=== PATIENT | female | born 1995 | race Caucasian/White ===

== ENCOUNTER 2020-10-16 15:18 | Emergency (ER) | payer OTHER, MEDICAID ==
[~2020-10-16] VITALS: Ht 157.5 cm; Wt 90.7 kg
[2020-10-16] MEDS ORDERED: IBUPROFEN 800800 M1 PO ×2 (15:56→16:04)
[2020-10-16] MEDS ORDERED: CEPHALEXIN500 MG PO ×2 (15:56→16:04)
[2020-10-16] MEDS ORDERED: NORCO5 PO ×2 (15:56→16:04)
[2020-10-16] MEDS ORDERED: BACTRIM DS TAB1 EACH PO ×2 (15:56→16:04)
[2020-10-16 16:17] VITALS: BP 124/58
== END 2020-10-16 16:18 | disposition home or self-care (01) ==
LOC: M.ERS 15:18
DX: L03.116 Cellulitis of left lower limb (principal); F15.10 Other stimulant abuse, uncomplicated; Z98.51 Tubal ligation status

== ENCOUNTER 2020-12-15 19:29 | Emergency (ER) | payer OTHER, MEDICAID ==
[~2020-12-15] VITALS: Ht 165.1 cm; Wt 102.1 kg
[~2020-12-15 19:29] MED LIST: BACTRIM DS TAB1 EACH PO; CEPHALEXIN500 MG PO; IBUPROFEN 800800 M1 PO; NORCO5 PO
[2020-12-15 20:47] LABS: ABSOLUTE LYMPHOCYTES 1.9 thou/uL (0.8-5.3); ABSOLUTE MONOCYTES 0.7 thou/uL (0.0-1.2); ABSOLUTE NEUTROPHILS 8.6 thou/uL (1.6-8.1); BASOPHILS 0.2 %; EOSINOPHILS 0.3 %; HEMATOCRIT 30.1 % (37.0-47.0); HEMOGLOBIN 9.9 gm/dL (12.0-15.0); LYMPHOCYTES 17.1 %; MCH 26.9 pg (26.0-34.0); MCV 81.4 fL (80.0-100.0); MONOCYTES 5.9 %; MPV 7.8 fl. (7.2-11.1); NUCLEATED RBCS 0 /100WBC; PLATELET COUNT* 424 thou/uL (150-400); POLYS 76.5 %; RBC 3.69 mil/uL (4.20-5.00); RDW-CV 15.3 % (10.5-14.5); WBC 11.2 thou/uL (4.0-11.0)
[2020-12-15 20:56] LABS: CALCIUM 8.3 mg/dL (8.5-10.1); CREATININE 0.6 mg/dL (0.6-1.3)
[2020-12-15 21:00] LABS: ALBUMIN 2.7 g/dL (3.4-5.0); TOTAL BILIRUBIN 0.4 mg/dL (<0.1-1.0); TOTAL PROTEIN 7.8 g/dL (6.4-8.2)
[2020-12-15 21:03] LABS: POTASSIUM 2.9 mmol/L (3.5-5.1)
[2020-12-15 23:51] LABS: URINE BILIRUBIN 2+ (Negative); URINE BLOOD 2+ (Negative); URINE CLARITY SL CLOUDY; URINE COLOR YELLOW; URINE GLUCOSE-RANDOM NEGATIVE (Negative); URINE KETONES 3+ (Negative); URINE LEUKOCYTES-REFLEX NEGATIVE (Negative); URINE NITRITE-REFLEX NEGATIVE (Negative); URINE PROTEIN 1+ (Negative)
[2020-12-15 23:53] LABS: ICTOTEST (BILI CONFIRMATORY) Negative (Negative)
[2020-12-15 23:58] LABS: AMP/METHAMP Negative (Negative); BARBITURATES Negative (Negative); BENZODIAZEPINES Negative (Negative); COCAINE Negative (Negative); METHADONE Negative (Negative); OPIATES POSITIVE (Negative); PCP Negative (Negative); THC Negative (Negative)
[2020-12-15 23:58] LABS: BACTERIA-REFLEX >30 Many /HPF (None Seen); COARSE GRANULAR CASTS 0-3 Few /LPF (None Seen); CRYSTALS None Seen /LPF (None Seen); FINE GRANULAR CASTS 0-3 Few /LPF (None Seen); HYALINE CASTS 0-3 Few /LPF (None Seen); MUCUS >6 Heavy strn/LPF (None Seen); SQUAMOUS >10 Many /LPF (0-3); TRANSITIONAL EPITHEL CELL 0-3 Few /LPF (None Seen); URINE RBC >20 Many /HPF (0-2); URINE WBC-REFLEX 6-15 Few /HPF (0-5)
[2020-12-16] MEDS ORDERED: AUGMENTIN 500-1 EACH PO (01:11)
[2020-12-16] MEDS ORDERED: HYDROCODON-ACE1 EAC7 PO (01:11)
[2020-12-16 01:26] VITALS: BP 109/70
--- NOTE | 2020-12-16 12:49 | EKG ---
[place] [address] ELECTROCARDIOGRAM REPORT Name: IVETT COELHO Room: [facility]#: [id number] Admission: 12/15/20 Attend Phys: Discharge: 12/16/20 Date of : [birth year] Date of Service: 12/15/202033 Report #: [id number] THIS REPORT FOR: //name// [facility] ED Test Date: 2020-12-15 Test Time: 20:34:07 Pat Name: IVETT COELHO Department: Room: Gender: Vaccine Specialist: PA : [id number] Requested By: Montserrat Rothman Order Number: [id number] MD: Zev Srinivasan Measurements Intervals [place] Rate: 106 P: 23 CO: 130 QRS: 30 QRSD: 83 T: 33 QT: 305 QTc: 405 Interpretive Statements Sinus tachycardia RSR' in V1 or V2, probably normal variant No previous ECG available for comparison Electronically Signed On 12-16-2020 12:49:30 CDT by Zev Srinivasan [email or web address] <ELECTRONICALLY SIGNED> By: Zev Srinivasan MD, [facility] 12/16/20 1249 33 33 Zev Srinivasan MD, [facility] /EPI
== END 2020-12-16 01:27 | disposition home or self-care (01) ==
LOC: M.ERS 19:29
PROVIDERS: Personal Emergency Response Attendant
DX: R10.31 Right lower quadrant pain (principal); R10.32 Left lower quadrant pain; F17.210 Nicotine dependence, cigarettes, uncomplicated; Z48.01 Encounter for change or removal of surgical wound dressing; Z98.51 Tubal ligation status

== ENCOUNTER 2021-07-01 04:54 | Emergency (ER) | payer OTHER, MEDICAID ==
[~2021-07-01] VITALS: Ht 165.1 cm; Wt 73.9 kg
[~2021-07-01 04:54] MED LIST changes: +AUGMENTIN 500-1 EACH PO; +HYDROCODON-ACE1 EAC7 PO
[2021-07-01 05:30] LABS: URINE BILIRUBIN NEGATIVE (Negative); URINE BLOOD 3+ (Negative); URINE COLOR YELLOW; URINE GLUCOSE-RANDOM NEGATIVE (Negative); URINE KETONES NEGATIVE (Negative); URINE LEUKOCYTES-REFLEX 3+ (Negative); URINE NITRITE-REFLEX POSITIVE (Negative); URINE PROTEIN TRACE (Negative); URINE SPECIFIC GRAVITY 1.015 (1.005-1.030)
[2021-07-01 05:31] LABS: URINE CLARITY CLOUDY
[2021-07-01 05:52] LABS: ABSOLUTE EOSINOPHILS 0.1 thou/uL (0.0-0.7); ABSOLUTE LYMPHOCYTES 1.4 thou/uL (0.8-5.3); ABSOLUTE MONOCYTES 0.2 thou/uL (0.0-1.2); ABSOLUTE NEUTROPHILS 2.7 thou/uL (1.6-8.1); EOSINOPHILS 1.8 %; HEMATOCRIT 35.8 % (37.0-47.0); HEMOGLOBIN 11.5 gm/dL (12.0-15.0); LYMPHOCYTES 31.2 %; MCH 28.6 pg (26.0-34.0); MCHC 32.2 g/dL (28.0-37.0); MCV 88.9 fL (80.0-100.0); MONOCYTES 5.3 %; MPV 7.2 fl. (7.2-11.1); NUCLEATED RBCS 0 /100WBC; PLATELET COUNT* 303 thou/uL (150-400); POLYS 60.7 %; RBC 4.03 mil/uL (4.20-5.00); RDW-CV 15.8 % (10.5-14.5); WBC 4.5 thou/uL (4.0-11.0)
[2021-07-01 05:57] LABS: CALCIUM 7.6 mg/dL (8.5-10.1); CREATININE 0.6 mg/dL (0.6-1.3); POTASSIUM 3.2 mmol/L (3.5-5.1)
[2021-07-01 05:58] LABS: AMP/METHAMP Negative (Negative); BARBITURATES Negative (Negative); BENZODIAZEPINES Negative (Negative); COCAINE Negative (Negative); METHADONE Negative (Negative); OPIATES Negative (Negative); PCP Negative (Negative); THC Negative (Negative)
[2021-07-01 06:00] LABS: SQUAMOUS 0-3 Few /LPF (0-3); TRANSITIONAL EPITHEL CELL 0-3 Few /LPF (None Seen); URINE RBC >20 Many /HPF (0-2); URINE WBC-REFLEX >25 Many /HPF (0-5); WBC CLUMPS Few (None Seen)
[2021-07-01 06:01] LABS: BACTERIA-REFLEX >30 Many /HPF (None Seen); CASTS None Seen /LPF (None Seen); CRYSTALS None Seen /LPF (None Seen); MUCUS 4-6 Moderate strn/LPF (None Seen)
[2021-07-01 06:02] LABS: ALBUMIN 2.7 g/dL (3.4-5.0); TOTAL BILIRUBIN 0.2 mg/dL (<0.1-1.0); TOTAL PROTEIN 7.3 g/dL (6.4-8.2)
[2021-07-01 06:47] VITALS: BP 116/81
== END 2021-07-01 06:47 | disposition left against medical advice (07) ==
LOC: M.ERS 04:54
PROVIDERS: Personal Emergency Response Attendant
DX: K92.2 Gastrointestinal hemorrhage, unspecified (principal); N39.0 Urinary tract infection, site not specified; F32.9 Major depressive disorder, single episode, unspecified; Z93.3 Colostomy status; Z98.51 Tubal ligation status